=== PATIENT | male | born 1960 | race Caucasian/White ===

== ENCOUNTER 2019-06-30 00:15 | Inpatient (IN) ==
--- NOTE | 2019-06-17 08:07 | EKG Report ---
Test Performed on : 06/17/2019 07:56:59 AM Test Reason : PAT Blood Pressure : / mmHG Vent. Rate : 065 BPM Atrial Rate : 065 BPM P-R Int : 164 ms QRS Dur : 090 ms QT Int : 390 ms P-R-T Axes : 082 069 070 degrees QTc Int : 405 ms Sinus rhythm. with premature supraventricular complexes. Otherwise normal ECG No previous ECGs available Confirmed by Elsi CH, Mo ([id number]) on 06/17/2019 8:15:18 AM
[2019-06-17 08:28] LABS: URINE SOURCE CLEAN CATCH
[2019-06-17 08:54] LABS: BILIRUBIN URINE NEGATIVE (NEGATIVE); BLOOD URINE NEGATIVE (NEGATIVE); COLOR YELLOW; GLUCOSE URINE NEGATIVE (NEGATIVE); KETONE URINE NEGATIVE (NEGATIVE); LEUKOCYTES URINE NEGATIVE (NEGATIVE); NITRITE URINE NEGATIVE (NEGATIVE); PROTEIN URINE NEGATIVE (NEGATIVE); SP GRAVITY URINE 1.012; TURBIDITY URINE CLEAR (CLEAR); UROBILINOGEN URINE NORMAL (NORMAL)
[2019-06-17 08:55] LABS: UR EPITHELIAL CELLS <10 /HPF (<10); URINE BACTERIA NEGATIVE /HPF; URINE RBC <10 /HPF (<10); URINE WBC <10 /HPF (<10)
[2019-06-17 08:56] LABS: BASO# 0.01 X1000 (0.0-0.2); BASO% 0.2 % (0.0-0.8); EOS# 0.14 X1000 (0.0-0.7); EOS% 2.3 % (0.0-10.0); HEMATOCRIT 43.4 % (42.0-52.0); HEMOGLOBIN 14.5 g/dL (14.0-18.0); IMM GRAN# 0.02 X1000 (0.0-0.04); IMM GRAN% 0.3 % (0.0-0.5); LYMPH# 1.36 X1000 (1.2-3.4); LYMPH% 22.3 % (20.5-51.1); MCH 29.8 PG (27-31); MCHC 33.4 g/dL (33-37); MCV 89.1 FL (81-99); MONO# 0.57 X1000 (0.11-0.59); MONO% 9.3 % (1.7-9.3); MPV 10.1 FL (7.4-10.4); NEUT# 4.01 X1000 (1.4-6.5); NEUT% 65.6 % (42.2-75.2); PLT 194 X1000 (130-400); RBC 4.87 XMIL (4.7-6.1); RDW 12.7 % (11.5-14.5); WBC 6.11 X1000 (4.8-10.8)
[2019-06-17 08:58] LABS: INR 0.94; PROTIME 12.6 Seconds (11.0-16.0)
[2019-06-17 08:59] LABS: PTT 27.2 Seconds (22.3-41.8)
[2019-06-17 09:16] LABS: AGAP 13; BUN 20 mg/dL (8-22); CALCIUM 9.2 mg/dL (8.8-10.2); CHLORIDE 100 mmol/L (98-107); COSMO 280; CREATININE 1.1 mg/dL (0.7-1.2); ESTIMATED GFR > 60; GLUCOSE 126 mg/dL (70-104); POTASSIUM 3.9 mmol/L (3.5-5.1); SODIUM 138 mmol/L (136-145); TCO2 25 mmol/L (25-35)
[2019-06-17 10:04] LABS: HEMOGLOBIN A1C 5.8 % (4.8-6.0)
[2019-06-30] MEDS ORDERED: TORADOL ONE (06:36)
[2019-06-30] MEDS ORDERED: MARCAINE 0.25% PF ONE (06:36)
[2019-06-30] MEDS ORDERED: DURAMORPH ONE (06:36)
[2019-06-30] MEDS ORDERED: NEOSPORIN G.U. IRRIGANT ONE (06:37)
[2019-06-30] MEDS ORDERED: SODIUM CHLORIDE 0.9% ONE (06:37)
[2019-06-30] MEDS ORDERED: CYKLOKAPRON 1,000 MG/NS 1,000 MG/100 ML IVPB ONE (06:37)
[2019-06-30] MEDS ORDERED: EXPAREL 1.3% ONE (06:37)
[2019-06-30] MEDS ORDERED: PEPCID ONE (06:44)
[2019-06-30] MEDS ORDERED: COLACE ONE (06:44)
[2019-06-30] MEDS ORDERED: REGLAN ONE (06:44)
[2019-06-30] MEDS ORDERED: CELEBREX ONE (06:45)
[2019-06-30] MEDS ORDERED: LR 1,000 ML ONE (06:45)
[2019-06-30] MEDS ORDERED: KEFZOL 1 GM/D5W 1 GM/50 ML IVPB ONE ×2 (06:45→07:40)
[2019-06-30] MEDS ORDERED: LYRICA ONE (06:45)
[2019-06-30] MEDS ORDERED: VERSED ONE ×2 (06:51→08:13)
[2019-06-30] MEDS ORDERED: FENTANYL ONE (06:52)
[2019-06-30] MEDS ORDERED: DIPRIVAN 1% 500 MG/50 ML BOTTLE ONE (06:54)
[2019-06-30] MEDS ORDERED: DIPRIVAN 1% ONE ×2 (08:50→09:31)
[2019-06-30 09:09] LABS: URINE SOURCE CATH
[2019-06-30 09:31] LABS: BILIRUBIN URINE NEGATIVE (NEGATIVE); BLOOD URINE NEGATIVE (NEGATIVE); COLOR YELLOW; GLUCOSE URINE NEGATIVE (NEGATIVE); KETONE URINE NEGATIVE (NEGATIVE); LEUKOCYTES URINE NEGATIVE (NEGATIVE); NITRITE URINE NEGATIVE (NEGATIVE); PROTEIN URINE NEGATIVE (NEGATIVE); SP GRAVITY URINE 1.019; TURBIDITY URINE CLEAR (CLEAR); UROBILINOGEN URINE NORMAL (NORMAL)
[2019-06-30 09:32] LABS: UR EPITHELIAL CELLS <10 /HPF (<10); URINE BACTERIA NEGATIVE /HPF; URINE RBC <10 /HPF (<10); URINE WBC <10 /HPF (<10)
[2019-06-30] MEDS ORDERED: OXY IR ONE (10:16)
[2019-06-30] MEDS: DILAUDID ONE ×2 (10:17→10:27)
[2019-06-30] MEDS ORDERED: NS 1,000 ML ONE (10:18)
--- NOTE | 2019-06-30 10:44 | OPERATIVE NOTE ---
PROCEDURE DATE: 06/30/2019 PREOPERATIVE DIAGNOSIS: Degenerative joint disease, left hip. POSTOPERATIVE DIAGNOSIS: Degenerative joint disease, left hip. PROCEDURE PERFORMED: Left total hip replacement anterior approach. SURGEON: Yoselyn Sampson MD. FRAMING MACHINE TENDER: Keyona Gifford. Ms Balta was necessary for proper retraction, manipulation, and exposure during the case. ANESTHESIA: Spinal. COMPLICATION: None. PROCEDURE IN DETAIL: This 58-year-old male with DJD about the left hip presents for a left hip replacement. Risks, benefits, and no guarantees were discussed and he is willing to proceed. He was taken to the operating room and satisfactory anesthesia obtained. He was placed on a [place] table and left hip prepped and draped in usual sterile fashion. A time-out was taken to confirm operative site, procedure, and patient. Afterwards an anterior approach to the left hip was undertaken with an incision starting 1 cm distal and lateral to the anterior superior iliac spine and carried down the tensor fascia along skin for 10 cm. Dissection was carried down through the fascia of the tensor fascia and blunt dissection along the inner membrane of this muscle was taken down to the anterior hip capsule. Cobra retractors were carefully placed over the superior and inferior aspect of the femoral neck and a capsulotomy incision made to expose the joint. The C- arm was used to reference an AP pelvis at this point for determination of leg lengths. An osteotomy was made roughly 8 mm above the lesser trochanter and the femoral head removed. A small Cobra retractor was carefully placed directly on the anterior acetabular bone to protect the anterior neurovascular structure during reaming. Sequential reaming was undertaken up to a 57 reamer under fluoroscopic guidance. A [employer]uy [employer] DuoFix LOPEZ coated 58 outer diameter cup was impacted into the acetabulum in roughly 45 degrees of abduction and 15 degrees of anteversion. A secure press-fit fixation was achieved. A 25 length screw was placed in the 12 o'clock position of the cup for additional security. A 36 mm inner diameter 0 degree polyethylene bearing was then impacted into the cup. The bearing cup interface and cup bone interface was checked and noted to be solid and stable. Traction was released off the leg and the hip extended and externally rotated to facilitate broaching of the proximal femur. Sequential broaching with a [employer] broach was undertaken up to a size 5 broach, which had good axial and rotational stability. A standard neck geometry on the stem with a +5 neck head length revealed good stability as well as roman catholic of leg length. The trial stem was removed an active standard neck geometry size 5 collared stem impacted in to the proximal femur with secure axial and rotational stability. A ceramic +5 36 mm head was impacted onto this and the hip reduced. The C-arm was used to verify accurate roman catholic of leg length as well as component position and geometry with no fractures. Stability was assessed by flexing the hip and internally rotating it without any posterior instability and extending the hip to the floor and externally rotating it 75 degrees without any anterior instability. The wound was copiously irrigated with irrigant. The joint was injected with Exparel for pain management. A Hemovac drain was placed to prevent any postop hematoma or seroma. The fascia of the tensor was closed with a running V-Loc suture, the subcutaneous with 2- 0 Vicryl and the skin with a 4-0 Monocryl. Sterile dressing was placed over the hip and the patient was recovered from anesthesia and transferred to the recovery room in stable condition. No intraoperative complications were noted. Instrument count and sponge count was correct at the time of closure. cc: Maximo Sampson MD
[2019-06-30] MEDS ORDERED: MORPHINE IV PRN ×3 (11:30)
[2019-06-30] MEDS ORDERED: ZOFRAN IV PRN (11:30)
[2019-06-30] MEDS ORDERED: ZOFRAN ODT PO PRN (11:30)
[2019-06-30] MEDS: ULTRAM PO SCH ×4 (14:00→22:25)
[2019-06-30] MEDS ORDERED: CYKLOKAPRON 1,000 MG in NS 100 ML IV ONE (14:00)
[2019-06-30] MEDS: TYLENOL PO SCH ×2 (14:02→18:04)
[2019-06-30] MEDS: OXY IR PO PRN ×3 (14:09→23:22)
--- NOTE | 2019-06-30 14:33 | ORTHOPAEDICS PROGRESS NOTE ---
DATE: 06/30/2019 Mr. De La Cruz is seen status post total hip replacement. At the present time, he is getting up with physical therapy and moving. He appears to have active knee flexion and extension as well as ankle dorsi and plantar flexion indicating both intact femoral and sciatic nerve functions. His bandage is clean and dry. The drain is intact. He is comfortable at the present time. We will plan on continuing to mobilize him. We will consider discharging him home tomorrow pending good mobility, and no other complications. cc: Maximo Sampson MD
[2019-06-30] MEDS: NS 1,000 ML IV SCH ×2 (15:10→23:22)
[2019-06-30] MEDS: KEFZOL 1 GM/D5W 1 GM/50 ML IVPB IV SCH ×2 (15:18→22:23)
[2019-06-30] MEDS: COLACE PO SCH (22:22)
[2019-06-30] MEDS: PERIDEX MT SCH (22:22)
[2019-06-30] MEDS: CELEBREX PO SCH (22:22)
[2019-07-01] MEDS: ULTRAM PO SCH ×3 (02:01→12:21)
[2019-07-01] MEDS: KEFZOL 1 GM/D5W 1 GM/50 ML IVPB IV SCH (02:02)
[2019-07-01] MEDS: NS 1,000 ML IV SCH (02:04)
[2019-07-01] MEDS: TYLENOL PO SCH ×3 (06:11→12:21)
[2019-07-01 06:48] LABS: HEMATOCRIT 29.5 % (42.0-52.0); HEMOGLOBIN 9.7 g/dL (14.0-18.0)
[2019-07-01 06:51] LABS: AGAP 9; BUN 15 mg/dL (8-22); CALCIUM 8.1 mg/dL (8.8-10.2); CHLORIDE 102 mmol/L (98-107); COSMO 277; ESTIMATED GFR > 60; GLUCOSE 140 mg/dL (70-104); SODIUM 137 mmol/L (136-145); TCO2 26 mmol/L (25-35)
[2019-07-01] MEDS: OXY IR PO PRN ×3 (06:54→13:15)
[2019-07-01 07:49] VITALS: BP 127/82
[2019-07-01] MEDS ORDERED: ASPIRIN PO SCH (09:00)
[2019-07-01] MEDS ORDERED: PEPCID PO SCH (09:00)
[2019-07-01] MEDS: COLACE PO SCH (09:21)
[2019-07-01] MEDS: CELEBREX PO SCH (09:21)
[2019-07-01] MEDS: PERIDEX MT SCH (09:21)
--- NOTE | 2019-07-01 10:21 | ORTHOPAEDICS PROGRESS NOTE ---
DATE: 07/01/2019 Mr. De La Cruz is seen status post anterior hip replacement. At the present time, he is afebrile with stable vital signs. He has mobilized well with therapy. We will discharge him home for outpatient followup. He is to return in 10 to 12 days. He is to return in the interim for any worsening signs or symptoms. Currently there are no signs of infection, active bleeding or DVT. Discharge medications include: 1. Cameron 10 1 every 4 hours as needed for pain. 2. Ibuprofen 600 mg 1 every 6 hours as needed for pain. 3. Bactrim DS 1 p.o. b.i.d. for a week for wound prophylaxis. 4. Aspirin 325 mg daily for DVT prophylaxis. cc: Maximo Sampson MD
== END 2019-07-01 13:29 | disposition home or self-care (01) ==
LOC: SURHOLD 00:15 → 4N 11:10
PROVIDERS: ADMIT Orthopaedic Surgery Adult Reconstructive Orthopaedic Surgery; ATTEND Orthopaedic Surgery Adult Reconstructive Orthopaedic Surgery